=== PATIENT | male | born 1965 | race Caucasian/White ===

== ENCOUNTER 2019-08-09 08:03 | Emergency (ER) | payer OTHER, SELFPAY ==
--- NOTE | 2019-08-09 08:21 | ED.SKABFB ---
HPI - Skin/Abscess/Foreign Bdy General Chief complaint: Skin/Abscess/Foreign Body Stated complaint: pos shingles Time Seen by Provider: 08/09/19 08:22 Source: patient and RN notes reviewed History of Present Illness HPI narrative: Patient is a 54-year-old male that presents the urgent care with complaints of a rash and possible shingles to the left side of the back. Patient states that he has had the itching burning painful rash for approximately 1 week. Patient does not currently have a PCP. Denies of any other spread of the rash or any other acute complaints. No acute distress noted. Patient appears very anxious. Patient aware of the plan of care. Related Data Home Medications Medication Instructions Recorded Confirmed benztropine 1 mg DAILY 08/09/19 08/09/19 duloxetine 120 mg PO DAILY 08/09/19 08/09/19 lamotrigine 100 mg DAILY 08/09/19 08/09/19 primidone 50 mg DAILY 08/09/19 08/09/19 quetiapine 50 mg DAILY 08/09/19 08/09/19 quetiapine 100 mg DAILY 08/09/19 08/09/19 Allergies Allergy/AdvReac Type Severity Reaction Status Date / Time lopez Allergy Severe Swelling Verified 08/09/19 08:29 peanut Allergy Severe ANAPHYLAXIS Verified 08/09/19 08:29 walnut Allergy Severe ANAPHYLAXIS Verified 08/09/19 08:29 Iodinated Contrast Media Allergy Unknown Unknown Verified 08/09/19 08:29 milk Allergy Unknown Unknown Verified 08/09/19 08:29 peanut oil Allergy Unknown Anaphylactic Verified 08/09/19 08:29 Shock peas Allergy Unknown Unknown Verified 08/09/19 08:29 Penicillins Allergy Unknown Unknown Verified 08/09/19 08:29 Sulfa (Sulfonamide Allergy Unknown Unknown Verified 08/09/19 08:29 Antibiotics) sulfanilamide Allergy Unknown Unknown Verified 08/09/19 08:29 tree nut Allergy Unknown Unknown Verified 08/09/19 08:29 Lopez Flour Allergy Severe Anaphylactic Uncoded 08/09/19 08:29 Shock NUT FLAVOR Allergy Severe NUTS CAUSE Uncoded 08/09/19 08:29 ANAPHYLACTIC SHOCK Pea Allergy Severe THROAT Uncoded 08/09/19 08:29 SWELLING Nut Tree Allergy Anaphylactic Uncoded 08/09/19 08:29 Shock Review of Systems Review of Systems: Narrative: CONSTITUTIONAL: Denies fever, chills, or sweats. EYES: Denies visual changes, redness, or discharge. ENT: Denies rhinorrhea, congestion, sore throat, or otalgia. CARDIOVASCULAR: Denies chest pain, palpitations, or edema. RESPIRATORY: Denies cough or dyspnea. GASTROINTESTINAL: Denies abdominal pain, nausea, vomiting, or diarrhea. GENITOURINARY: Denies dysuria or hematuria. SKIN: Reports of an itchy painful rash to the left side of the back MUSCULOSKELETAL: Denies back pain, joint pain, or myalgia. NEUROLOGIC: Denies headache, numbness, or weakness. All other systems reviewed are negative, except as documented in HPI. [facility] Family History Family History (Updated 01/06/14 @ 07:13 by DOCTOR UNKNOWN) Mother Family history of Alzheimer's disease Family history of congestive heart failure Family history of congenital heart disease Father Family history of emphysema Family history of congestive heart failure Sibling Asthma Other Family history of cardiovascular disease Hypertension Social History Social History Smoking status: Never smoker Alcohol intake: never Gender identity (if verbalized by the patient): Male Comments At the time of my signature, I reviewed and agree with the nursing past medical, surgical, social, and family history. There is no relevant family history pertinent to the patient complaint. Exam Narrative: Exam Narrative: GENERAL: This is a well-nourished, well-developed patient, appears very anxious HEAD: normocephalic, atraumatic. EYES: PERRL. Sclera clear/white. Vision is grossly intact. EARS: External ears normal NOSE: External nose normal with no obvious nasal discharge THROAT: Mucous membranes moist NECK: Neck supple CARDIOVASCULAR: Regular rate and rhythm without murmurs, gallops, or rubs. RESPIRATORY: Clear to auscultation
[2019-08-09 08:22] VITALS: BP 134/90; PULSE 87; RESP 16; TEMP 36.3; O2SAT 99
== END 2019-08-09 08:41 | disposition home or self-care (01) ==
PROVIDERS: Emergency Provider Nurse Practitioner Family
DX: B02.9 Zoster without complications (principal); I10 Essential (primary) hypertension; J45.909 Unspecified asthma, uncomplicated; F31.9 Bipolar disorder, unspecified
CPT/HCPCS: 99213; G0463